=== PATIENT | female | born 1980 | race American Indian/Alaskan Native ===

== ENCOUNTER 2017-01-10 09:40 | Emergency (ER) | payer SELFPAY ==
[2017-01-10 09:58] VITALS: BP 118/73
--- NOTE | 2017-01-10 12:10 | Emergency Department Report ---
ED N/V/D HPI - General Chief complaint: Nausea/Vomiting/Diarrhea Stated complaint: N/V X 3 DAYS Time Seen by Provider: 01/10/17 12:08 Source: patient, family Mode of arrival: Ambulatory Limitations: No Limitations - History of Present Illness Initial comments: Patient here complaining of nausea vomiting and diarrhea for 3 days. She says in having diarrhea for the first 2 days but now has nausea and vomiting and she cannot keep anything down. She states prior to having nausea vomiting diarrhea she isn't macaroni and cheese colored green and fried chicken would call her. Denies any abdominal or back pain. Denies any urinary burning frequency or urgency. She reports that she is having chills. No [id number] medication taken. She says she has been drinking travis janette to help her stomach but it's not working. Patient had a pseudoseizure and sensation he vomited and has been vomiting in 6-7 times a day over the 3 days. She said initially 2 out of 3 days she had diarrhea 5-6 times a day. Denies any blood in her stool or in her vomit. MD complaint: nausea, vomiting, diarrhea Onset/Timin -: days(s) Description of Vomiting: bilious Description of Diarrhea: water Associated Abdominal Pain: No Pain Scale: 0 Improves with: none Worsens with: none Context: possible food poisoning Associated Symptoms: fever/chills, loss of appetite, nausea/vomiting, weakness. denies: myalgias, chest pain, cough, diaphoresis, headaches, malaise, rash, dysuria, shortness of breath, syncope - Related Data Previous Rx's Medication Instructions Recorded Last Taken Type Dicyclomine [Bentyl] 20 mg PO BID #10 tablet 01/10/17 Unknown Rx Promethazine [Phenergan TAB] 25 mg PO Q8HR PRN #15 tab 01/10/17 Unknown Rx Allergies Allergy/AdvReac Type Severity Reaction Status Date / Time No Known Allergies Allergy Verified 01/10/17 09:59 ED Review of Systems ROS: Stated complaint: N/V X 3 DAYS Other details as noted in HPI Comment: All other systems reviewed and negative Constitutional: chills, weakness. denies: fever ENT: denies: throat pain Respiratory: no symptoms reported Cardiovascular: denies: chest pain, palpitations, edema, syncope Gastrointestinal: nausea, vomiting, diarrhea. denies: abdominal pain, hematemesis, melena, hematochezia Genitourinary: denies: urgency, dysuria, frequency, hematuria, discharge, abnormal menses Musculoskeletal: denies: back pain, arthralgia, myalgia Skin: denies: rash Neurological: weakness. denies: headache, numbness, paresthesias, confusion, abnormal gait, vertigo ED Past Medical Hx - Past Medical History Previous Medical History?: Yes Additional medical history: ruptured cyst from iud - Surgical History Past Surgical History?: No - Family History Family history: hypertension - Social History Smoking Status: Never Smoker Substance Use Type: Alcohol - Medications Home Medications: Home Medications Medication Instructions Recorded Confirmed Last Taken Type Dicyclomine [Bentyl] 20 mg PO BID #10 tablet 01/10/17 Unknown Rx Promethazine [Phenergan TAB] 25 mg PO Q8HR PRN #15 tab 01/10/17 Unknown Rx ED Physical Exam - General Limitations: No Limitations General appearance: alert, in no apparent distress - Head Head exam: Present: atraumatic, normocephalic, normal inspection - Eye Eye exam: Present: normal appearance, PERRL, EOMI. Absent: scleral icterus, conjunctival injection Pupils: Present: normal accommodation - ENT ENT exam: Present: mucous membranes dry, TM's normal bilaterally, normal external ear exam - Neck Neck exam: Present: normal inspection, full ROM. Absent: tenderness, meningismus, lymphadenopathy - Respiratory Respiratory exam: Present: normal lung sounds bilaterally. Absent: respiratory distress, chest wall tenderness - Cardiovascular Cardiovascular Exam: Present: normal rhythm, bradycardia (asymptomatic), normal heart sounds - GI/Abdominal GI/Abdominal exam: Present: soft, normal bowel sounds. Absent: distended, tenderness, guarding, rebound, rigid - Extremities Exam Extremities exam: Present: normal inspection, full ROM, normal capillary refill. Absent: tenderness, pedal edema, joint swelling, calf tenderness - Back Exam Back exam: Present: normal inspection, full ROM. Absent: tenderness, CVA tenderness (R), CVA tenderness (L), muscle spasm, paraspinal tenderness, vertebral tenderness, rash noted - Neurological Exam Neurological exam: Present: alert, oriented X3, normal gait, reflexes normal. Absent: motor sensory deficit - Psychiatric Psychiatric exam: Present: normal affect, normal mood - Skin Skin exam: Present: warm, dry, intact, normal color. Absent: rash ED Course Vital Signs 01/10/17 09:56 Temperature 99 F Pulse Rate 51 L Respiratory 16 Rate Blood Pressure 118/73 O2 Sat by Pulse 100 Oximetry - Reevaluation(s) Reevaluation #1: 01/10/17 12:33 Patient to receive ns 1 litre, zofran, labs ordered. 01/10/17 13:44 Patient is feeling better after IV fluid and Zofran. She is able to tolerate this or liquids and so she felt better. Potassium is 3.4. Kdur 40 meq x 1 dose . ED Medical Decision Making - Lab Data Result diagrams: 01/10/17 12:22 01/10/17 12:22 Lab Results 01/10/17 01/10/17 01/10/17 Range/Units 12:22 12:22 12:22 WBC 12.3 H (4.5-11.0) K/mm3 RBC 5.14 H (3.65-5.03) M/mm3 Hgb 15.7 H (10.1-14.3) gm/dl Hct 46.9 H (30.3-42.9) % MCV 91 (79-97) fl MCH 31 (28-32) pg MCHC 33 (30-34) % RDW 13.4 (13.2-15.2) % Plt Count 185 (140-440) K/mm3 Lymph % (Auto) 18.3 (13.4-35.0) % [place] % (Auto) 5.1 (0.0-7.3) % Eos % (Auto) 0.1 (0.0-4.3) % Baso % (Auto) 0.2 (0.0-1.8) % Lymph # 2.2 (1.2-5.4) K/mm3 [place] # 0.6 (0.0-0.8) K/mm3 Eos # 0.0 (0.0-0.4) K/mm3 Baso # 0.0 (0.0-0.1) K/mm3 Seg Neutrophils % 76.3 H (40.0-70.0) % Seg Neutrophils # 9.4 H (1.8-7.7) K/mm3 Sodium 139 (137-145) mmol/L Potassium 3.4 L (3.6-5.0) mmol/L Chloride 96.3 L (98-107) mmol/L Carbon Dioxide 26 (22-30) mmol/L Anion Gap 20 mmol/L BUN 13 (7-17) mg/dL Creatinine 0.7 (0.7-1.2) mg/dL Estimated GFR > 60 ml/min BUN/Creatinine Ratio 18.57 % Glucose 123 H (65-100) mg/dL Calcium 9.9 (8.4-10.2) mg/dL HCG, Qual Negative (Negative) Urine Color (Yellow) Urine Turbidity (Clear) Urine pH (5.0-7.0) Ur Specific [place] (1.003-1.030) Urine Protein (Negative) mg/dL Urine Glucose (UA) (Negative) mg/dL Urine Ketones (Negative) mg/dL Urine Blood (Negative) Urine Nitrite (Negative) Urine Bilirubin (Negative) Urine Urobilinogen (<2.0) mg/dL Ur Leukocyte Esterase (Negative) Urine WBC (Auto) (0.0-6.0) /HPF Urine RBC (Auto) (0.0-6.0) /HPF U Epithel Cells (Auto) (0-13.0) /HPF Urine Mucus /HPF 06/18/17 Range/Units 12:26 WBC (4.5-11.0) K/mm3 RBC (3.65-5.03) M/mm3 Hgb (10.1-14.3) gm/dl Hct (30.3-42.9) % MCV (79-97) fl MCH (28-32) pg MCHC (30-34) % RDW (13.2-15.2) % Plt Count (140-440) K/mm3 Lymph % (Auto) (13.4-35.0) % [place] % (Auto) (0.0-7.3) % Eos % (Auto) (0.0-4.3) % Baso % (Auto) (0.0-1.8) % Lymph # (1.2-5.4) K/mm3 [place] # (0.0-0.8) K/mm3 Eos # (0.0-0.4) K/mm3 Baso # (0.0-0.1) K/mm3 Seg Neutrophils % (40.0-70.0) % Seg Neutrophils # (1.8-7.7) K/mm3 Sodium (137-145) mmol/L Potassium (3.6-5.0) mmol/L Chloride (98-107) mmol/L Carbon Dioxide (22-30) mmol/L Anion Gap mmol/L BUN (7-17) mg/dL Creatinine (0.7-1.2) mg/dL Estimated GFR ml/min BUN/Creatinine Ratio % Glucose (65-100) mg/dL Calcium (8.4-10.2) mg/dL HCG, Qual (Negative) Urine Color Yellow (Yellow) Urine Turbidity Clear (Clear) Urine pH 6.0 (5.0-7.0) Ur Specific [place] 1.033 H (1.003-1.030) Urine Protein 100 mg/dl (Negative) mg/dL Urine Glucose (UA) Neg (Negative) mg/dL Urine Ketones 80 (Negative) mg/dL Urine Blood Neg (Negative) Urine Nitrite Neg (Negative) Urine Bilirubin Neg (Negative) Urine Urobilinogen 4.0 (<2.0) mg/dL Ur Leukocyte Esterase Tr (Negative) Urine WBC (Auto) 2.0 (0.0-6.0) /HPF Urine RBC (Auto) 18.0 (0.0-6.0) /HPF U Epithel Cells (Auto) 2.0 (0-13.0) /HPF Urine Mucus 3+ /HPF - Medical Decision Making ED course: Patient here for nausea and nausea vomiting and diarrhea for 3 days. She was treated and emergency room with IV normal saline 1 L, Zofran 4 mg IV and by mouth challenged and tolerated well. Lab work revealed mild increase in white count with hemoconcentration with history of dehydration along with ketones in urine and elevated specific gravity. Patient also has slight decrease in potassium of 3.4 and repeated potassium 40 mEq 1. I discussed labs patient and told her that she needs to follow up with her primary care when she does have one for recheck of urinalysis due to proteinuria and she still has protein in her urine she will need to follow-up with a nephrology with her primary care doctor will be able to refer her to. Patient says she is feeling a lot better after IV fluid and nausea medication. Patient voiced understanding of discharge diagnosis and treatment plan and discharged home with her family with prescription for Phenergan and bentyl. educated and high in potassium food. Critical care attestation.: If time is entered above; I have spent that time in minutes in the direct care of this critically ill patient, excluding procedure time. ED Disposition Clinical Impression: Nausea vomiting and diarrhea, Hypokalemia, Dehydration Protein in urine Qualifiers: Proteinuria type: unspecified Qualified Code(s): R80.9 - Proteinuria, unspecified Disposition: - TO HOME OR SELFCARE Is pt being admited?: No Does the pt Need Aspirin: No Condition: Stable Instructions: Acute Nausea and Vomiting (ED), Acute Diarrhea (ED), Nutrition Tips for Relief of Diarrhea (ED), Dehydration (ED), Hypokalemia (ED) Additional Instructions: You have Protein in urine so you will need to follow up with primary care physician for repeat urinalysis Do Not take Phenergan while driving or operating heavy machinery and this medication can cause drowsiness Increase fluid intake. The next 72 hours, eat food such as , banana, rice, apple sauce and toast Prescriptions: Dicyclomine [Bentyl] 20 mg PO BID #10 tablet Promethazine [Phenergan TAB] 25 mg PO Q8HR PRN #15 tab PRN Reason: Nausea Referrals: PRIMARY CARE, [Primary Care Provider] - 2-3 Days Forms: Work/School Release Form(ED), Accompanied Note
[2017-01-10] MEDS ORDERED: ZOFRAN IV ONE (12:11)
[2017-01-10] MEDS ORDERED: NACL 0.9% 1000 ML 1,000 ML IV ONE (12:11)
[2017-01-10 12:38] LABS: Basophils % (Auto) 0.2 % (0.0-1.8); Eosinophils % (Auto) 0.1 % (0.0-4.3); Hematocrit 46.9 % (30.3-42.9); Hemoglobin 15.7 gm/dl (10.1-14.3); Mean Corpuscular HGB Conc 33 % (30-34); Mean Corpuscular Hemoglobin 31 pg (28-32); Mean Corpuscular Volume 91 fl (79-97); Platelet Count 185 K/mm3 (140-440); Red Blood Count 5.14 M/mm3 (3.65-5.03); Red Cell Distribution Width 13.4 % (13.2-15.2); White Blood Count 12.3 K/mm3 (4.5-11.0)
[2017-01-10 12:55] LABS: Anion Gap 20 mmol/L; BUN/Creatinine Ratio 18.57; Blood Urea Nitrogen 13 mg/dL (7-17); Calcium 9.9 mg/dL (8.4-10.2); Carbon Dioxide 26 mmol/L (22-30); Chloride 96.3 mmol/L (98-107); Glucose 123 mg/dL (65-100); Potassium 3.4 mmol/L (3.6-5.0); Sodium 139 mmol/L (137-145)
[2017-01-10 13:28] LABS: Bilirubin,Urine NEG (Negative); Blood,Urine NEG (Negative); Ketones,Urine 80 mg/dL (Negative); Leukocyte Esterase,Urine TR (Negative); Mucus,Urine 3+ /HPF; Nitrite,Urine NEG (Negative)
[2017-01-10] MEDS ORDERED: K-DUR PO ONE (13:43)
== END 2017-01-10 14:09 | disposition home or self-care (01) ==
LOC: ED 09:40
DX: R11.2 Nausea with vomiting, unspecified (principal); R19.7 Diarrhea, unspecified; E87.6 Hypokalemia; E86.0 Dehydration; R80.9 Proteinuria, unspecified
CPT/HCPCS: 36415; 80048; 81001; 84703; 85025; 96361; 96374; 99283; J2405; J7030